=== PATIENT | male | born 1935 | race Caucasian/White ===

== ENCOUNTER 2021-09-10 00:36 | Day surgery (SDC) | payer MEDICARE, SELFPAY ==
--- NOTE | 2021-08-31 14:37 | P.HP_ITS ---
H&P: HPI History of Present Illness Date/Time: 08/31/21 14:37 Patient is a pleasant 86 year with longstanding prostatism and, recently, urinary retention. 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 Also has a moderate size bladder stone. He has failed attempts at managing with tamsulosin and, after careful discussion with the patient and his son, has elected for a TURP with laser lithotripsy and bladder stone extraction. He is aware of the risk including, but not limited to, adverse cardiopulmonary events, persistent urinary retention, hematuria and urinary incontinence. Chief Complaint: Urinary retention Review of Systems Cardiovascular: Cardiovascular: Denies chest pain, Denies lightheadedness, Denies palpitations and Denies dyspnea Respiratory: Respiratory: Denies dyspnea Gastrointestinal: Gastrointestinal: Denies diarrhea, Denies nausea and Denies vomiting Genitourinary: Genitourinary: Denies hematuria and Denies dysuria Endocrine: Endocrine: Denies palpitations Exam Const: General: no acute distress Resp: Effort & Inspection: normal respiratory effort GI: Inspection: non-distended GI Palp: No abdominal tenderness and No Guarding due to palpation present (GI) Auscultation: normal bowel sounds Assessment and Plan Assessment and plan (1) Urinary retention due to benign prostatic hyperplasia: Code(s): N40.1 - Benign prostatic hyperplasia with lower urinary tract symptoms; R33.8 - Other retention of urine Status: Acute (2) Bladder stone: Code(s): N21.0 - Calculus in bladder Status: Acute Assessment and Plan: * Cystoscopy, laser lithotripsy with bladder stone extraction and TURP
[2021-09-07 12:12] VITALS: BMI 23.2
--- NOTE | 2021-09-07 12:21 | PC.NURSE ---
Report to the Outpatient Waiting Room, entrance under the green pavilion located off [facility], at time _0600_ on date _09/10/21_. OR Time: _0730 AM__. - You and your visitor will be asked a series of questions to screen for COVID 19 for your protection. - A mask is required within the hospital. - NO visitors are allowed at this time. Patient visitors will be guided where to wait when not with patient. Preoperative COVID Testing Requirements: No COVID Test needed if: (proof is required; if not received patient will have Rapid Test prior to entry) - Patient has received COVID Vaccine at least 14 days prior to procedure date or - Patient has positive COVID test result within last 90 days of surgery date. COVID Test needed if above criteria is not met If not COVID vaccinated a COVID test must be conducted within 72 hours of surgery and patient is asked to isolate self from time of testing until procedure. You will go to the [facility] for your COVID testing. The [facility] is located at the corner of [address] [facility]. You will only be called if COVID results are positive and your surgeon may reschedule your elective surgery date. Patients may have clear liquids (water, carbonated beverages, clear teas, apple juice) until 3 hours prior to surgery with a maximum of 20 ounces. (0430 AM) - No food from midnight until time of surgery - Infants may have breast milk until 4 hours before surgery, infant formula 6 hours prior to surgery. - Children will be allowed to drink immediately following surgery. If applicable, please bring a bottle or sippy cup to assist with drinking. Juice, water, soda, and popsicles are readily available. For infants on formula, please bring formula the day of surgery. Pacifiers are allowed. Take the following medications with a SIP of water the morning of surgery: _CARBIDOPA-LEVODOPA,LEVOTHYROXINE, METOPROLOL__ Medications to discontinue per physician _SON STATES PT STOPPED WARFARIN 09/02/21_ Please no make-up, nail icelandic, hairspray, perfume, deodorant, or body powder the day of surgery. No jewelry (including any body piercings) or valuables the day of surgery, leave them at home. Please take a shower or bath the night before, or the morning of, surgery with an antibacterial soap. Wear comfortable, loose fitting clothing. Children are encouraged to wear pajamas. - Jewelry must be removed prior to entering the operating room. Rings and piercings that are not removed may be cut off. - The hospital will not accept responsibility for valuables. - Please leave all valuables, including medications, at home the day of surgery. If you are going home after surgery, a licensed drivers license examiner must drive you home. - NO public transportation without another adult. - We recommend that an adult stay with you for 24 hours following discharge. - We also recommend that you do not drive, make important decision, drink alcoholic beverages, or take any drugs that were not prescribed by your health care provider for at least 24 hours after your discharge time. For Pediatric surgeries, we recommend two adults accompany the child home (only one inside the building at this time). Follow any additional instructions given to you from your surgeon. Telephone instructions given to _PT'S SON MUNA__and asked if any additional questions and then verbalized understanding. Patient advised to call surgeon office or pre surgery nurse liaison [phone] if any additional questions.
[2021-09-10] VITALS (19 sets, daily range): BP systolic 89–137; BP diastolic 49–88; PULSE 62–91; RESP 10–18; TEMP 36.4–37.3; O2SAT 96–100; BMI 22.1
--- NOTE | 2021-09-10 06:53 | WPDHPUPDATE1 ---
History and Physical Update Update Date/Time: 09/10/21 06:53 History and Physical has been reviewed, including an updated exam of the patient. There are NO changes in the patient's condition. Risks, benefits, and alternatives have been discussed and questions answered. Patient agrees to proceed with procedure.
--- NOTE | 2021-09-10 06:57 | P.PNAN_ITS ---
Anes - Initial Pre Proc Eval Procedure: Operation Date: 09/10/21 07:30 Proposed Procedures p Trans Urethral Resection Prostate - Pascual Lo MD s Laser Lithotripsy Bladder Stones - Pascual Lo MD Date/Time: 09/10/21 06:57 Surgeon: Pascual Lo MD Pre Op Diagnosis: BPH,Bladder Stones, Calculus of Ureteral Patient Data Age: 86 Gender: M Height: 1.83 m Weight: 74 kg Allergies Allergy/AdvReac Type Severity Reaction Status Date / Time No Known Allergies Allergy Verified 09/10/21 06:40 Home Medications Medication Instructions Recorded Confirmed Type allopurinol 100 mg DAILY 09/07/21 09/10/21 History carbidopa-levodopa 2 tablet QID 09/07/21 09/10/21 History cephalexin 500 mg DAILY 09/07/21 09/07/21 History docusate sodium [Colace] 100 mg PO BID 09/07/21 09/10/21 History finasteride 5 mg DAILY 09/07/21 09/10/21 History hydrochlorothiazide 12.5 mg DAILY 09/07/21 09/10/21 History levothyroxine 100 mcg DAILY 09/07/21 09/10/21 History metoprolol succinate 12.5 mg PO DAILY 09/07/21 09/10/21 History tamsulosin 0.4 mg PO HS 09/07/21 09/10/21 History terazosin 10 mg DAILY 09/07/21 09/10/21 History warfarin 3 mg DAILY 09/07/21 09/10/21 History Laboratory Tests 09/10/21 06:50 PT Pending INR Pending Patient hx anesthesia problems: none Family hx anesthesia problems: none Results Review: All pre-operative results and documents have been reviewed as part of the pre-operative evaluation. [facility] Past Medical History Medical History Afib Hypertension Parkinson disease Social History Social History Smoking status: Former smoker Tobacco type: cigars Second hand tobacco smoke exposure: No Additional smoking assessment comments: SON STATES PT SMOKED OCCASIONAL CIGAR - QUIT OVERY 30-40 YRS AGO Substance use type: does not use Living arrangements: alone Spiritual care concerns: No Anes - Eval Final PreProcedure Day of Procedure 09/10/21 06:57 Patient weight: normal Heart: irregular rhythm Lungs: clear to auscultation Airway: Mallampati scale class II Neurological: other (alert) Last oral intake: >/= 8 hours ASA classification: III Emergent: no Anesthetic plan: proceed Anesthesia type and monitoring: general LMA and standard monitoring Results Review: All pre-operative results and documents have been reviewed as part of the pre-operative evaluation. Informed Consent: The patient's anesthetic plan and its attendant risks and benefits were discussed with the patient/family/POA. Questions were solicited and answers provided to the satisfaction of the patient/family/POA.
[2021-09-10 07:10] LABS: INR 1.2; Prothrombin Time 14.7 Seconds (11.1-14.7)
[2021-09-10] MEDS: LACTATED RINGERS 1,000 ML 30 ML IV CONT (07:12)
[2021-09-10] MEDS: ceFAZolin 2 GM/D5W 50 ML 2 GM/50 ML BAG IVPB (07:26)
--- NOTE | 2021-09-10 09:22 | W.PM.PROC2 ---
Procedure Note - Detailed Date of Procedure 09/10/21 Pre-op Diagnosis BPH,Bladder Stone Post-op Diagnosis same Procedure Performed Cystoscopy, laser lithotripsy with extraction of a large bladder calculus; TURP Surgeon Pascual Lo MD Anesthesia general Description of Procedure patient brought to the operative suite where he has prepped draped in routine sterile fashion while in a dorsal lithotomy position after the uneventful induction of a general anesthetic. Cystoscopy is undertaken the 20 F rigid cystoscope. Has no urethral stricture but trilobar hyperplasia of the prostate. Has a large bladder calculus. Using a 1000 micron holmium laser fiber we fractured that and a tiny pieces which were evacuated using an KeepTrax evacuator. Attention was then turned to the TURP. Resection of the median lobe was undertaken from the bladder neck to the verumontanum. This was carried down to the fibers of the bladder neck were identified. He has a moderate size median lobe. Left lateral lobe was then resected starting at the 12 o'clock position and working to the 6 o'clock position. Right lateral lobe was resected in a similar fashion. Resection was carried out until the capsular fibers of the prostate were identified and resection extended from the bladder neck to the verumontanum. Apical tissue was circumferentially resected. Chips were evacuated from the bladder. Ureteral orifices were inspected and found to be without injury. Hemostasis was obtained with electrocautery using both the loop and rollerball electrode. A 24 F hematuria catheter was placed. Urinary efflux was clear at the termination of the procedure. The patient was taken to the recovery room good condition. Estimated Blood Loss -100.0 Drains Yes Packing No Pathology yes Complications No immediate complications Condition stable Disposition PACU
[2021-09-10] MEDS: DEXTROSE 5%/LACTATED RINGERS 1,000 ML 125 ML IV CONT ×2 (11:20→20:09)
--- NOTE | 2021-09-10 12:10 | PC.NURSE ---
This patient, Caleb Torres, was admitted to [facility] Surgery-3. Patient/family oriented to hospital policies and general routines including ID bracelet, bed and alarms, visiting hours, pain management, procedures, bathroom and other care routines, personal items, smoking policy, room service/diet, and visiting hours. Information on how to activate the Rapid Response Team has been discussed. Patient/Family are encouraged to report perceived risks to care and to ask questions if they do not understand what they are told or what they should do.
[2021-09-10] MEDS: CARBIDOPA/LEVODOPA 25/100 MG TABLET 2 TABLET PO ×3 (12:40→21:54)
[2021-09-10] MEDS: DOCUSATE SODIUM 100 MG CAPSULE PO (18:03)
[2021-09-11 03:45] VITALS: BP 119/68; PULSE 82; RESP 16; TEMP 36.6; O2SAT 100
[2021-09-11 05:49] LABS: Hematocrit 32.6 % (42.0-52.0); Hemoglobin 10.5 g/dL (14.0-18.0)
[2021-09-11 05:58] LABS: Anion Gap 2 mmol/L (8-16); Blood Urea Nitrogen 18 mg/dL (9-20); Calcium 8.6 mg/dL (8.4-10.2); Carbon Dioxide 31 mmol/L (22-30); Chloride 101 mmol/L (98-107); Estimated CRCL calculation 62 ml/min; Estimated Glomerular Filt Rate > 60; Glucose 144 mg/dL (65-110); Potassium 4.1 mmol/L (3.4-5.0); Sodium 134 mmol/L (137-145)
--- NOTE | 2021-09-11 07:05 | WPDUROPN2 ---
Progress Note: A&P Assessment and Plan (1) Bladder stone: Code(s): N21.0 - Calculus in bladder Status: Acute (2) Urinary retention due to benign prostatic hyperplasia: Code(s): N40.1 - Benign prostatic hyperplasia with lower urinary tract symptoms; R33.8 - Other retention of urine Status: Acute Assessment and Plan: Doing well POD #1 TURP - urine clear and comfortable. Stop CBI early this morning. Anticipate voiding trial and discharge midday. Subjective Subjective Date/Time Seen: 09/11/21 07:05 Comfortable, urine clear - doing well POD #1 TURP Review of Systems Cardiovascular: Cardiovascular: Denies chest pain, Denies lightheadedness, Denies palpitations and Denies dyspnea Respiratory: Respiratory: Denies dyspnea Gastrointestinal: Gastrointestinal: Denies diarrhea, Denies nausea and Denies vomiting Genitourinary: Genitourinary: Denies hematuria and Denies dysuria Endocrine: Endocrine: Denies palpitations Exam Const: General: no acute distress Resp: Effort & Inspection: normal respiratory effort GI: Inspection: non-distended GI Palp: No abdominal tenderness and No Guarding due to palpation present (GI) Auscultation: normal bowel sounds Objective Data Vital Signs Vital Signs: Vital Signs - 24 hr 09/10/21 07:14 09/10/21 09:06 09/10/21 09:20 Temperature 97.9 F 97.5 F L Pulse Rate 84 71 71 Respiratory Rate 16 10 L 16 Blood Pressure 137/85 117/71 119/81 Pulse Oximetry 100 100 100 09/10/21 09:35 09/10/21 09:50 09/10/21 10:05 Temperature Pulse Rate 67 70 75 Respiratory Rate 16 12 12 Blood Pressure 119/72 122/81 117/88 Pulse Oximetry 100 98 97 09/10/21 10:20 09/10/21 10:35 09/10/21 10:50 Temperature 97.6 F Pulse Rate 70 75 76 Respiratory Rate 12 12 12 Blood Pressure 125/79 124/64 122/70 Pulse Oximetry 98 97 97 09/10/21 11:05 09/10/21 11:15 09/10/21 11:23 Temperature 97.6 F Pulse Rate 72 77 62 Respiratory Rate 12 12 16 Blood Pressure 116/84 127/86 123/71 Pulse Oximetry 96 97 99 09/10/21 11:35 09/10/21 12:05 09/10/21 12:50 Temperature 97.8 F Pulse Rate 73 70 Respiratory Rate 14 16 Blood Pressure 114/69 114/72 Pulse Oximetry 98 99 99 09/10/21 13:05 09/10/21 17:00 09/10/21 21:00 Temperature 98.5 F 98.4 F Pulse Rate 73 91 86 Respiratory Rate 12 18 16 Blood Pressure 115/63 89/49 L 111/59 L Pulse Oximetry 99 97 99 09/10/21 23:15 09/11/21 03:45 Temperature 99.2 F 98 F Pulse Rate 75 82 Respiratory Rate 16 16 Blood Pressure 110/58 L 119/68 Pulse Oximetry 100 100 Intake/Output Intake/Output: Intake & Output 09/08/21 09/09/21 09/10/21 09/11/21 23:59 23:59 23:59 23:59 Intake Total 47924 65684 Output Total 89936 41628 Balance -910 -500 Meds/Results Medications: Active Medications Generic Name Dose Route Start Last Admin Trade Name Freq PRN Reason Stop Dose Admin Hydrocodone Bitart/Acetaminophen 1 tab 09/10/21 11:15 Hydrocodone/Acetaminophen (*Crx) 5-325 Mg Tablet PO Q4H PRN Pain Rated 1-6 Allopurinol 100 mg 09/11/21 09:00 Allopurinol 100 Mg Tablet PO DAILY LESLIE Carbidopa/Levodopa 2 tablet 09/10/21 13:00 09/10/21 21:54 Carbidopa/Levodopa 25/100 Mg Tablet PO 2 tablet QID LESLIE Administration Cephalexin HCl 500 mg 09/11/21 09:00 Cephalexin 500 Mg Capsule PO QID LESLIE Docusate Sodium 100 mg 09/10/21 17:00 09/10/21 18:03 Docusate Sodium 100 Mg Capsule PO 100 mg BID LESLIE Administration Hydrochlorothiazide 12.5 mg 09/10/21 09:00 09/10/21 12:39 Hydrochlorothiazide 12.5 Mg Capsule PO Not Given DAILY LESLIE Hyoscyamine 0.125 mg 09/10/21 11:15 Hyoscyamine Sulfate 0.125 Mg Tablet SUBLINGUAL Q6H PRN Bladder Spasm Dextrose/Lactated Ringer's 1,000 mls @ 125 mls/hr 09/10/21 11:15 09/11/21 04:35 Dextrose 5%/Lactated Ringers IV CONT Not Given .Q8H LESLIE Levothyroxine Sodium 100 mcg 09/11/21 06:30 Levothyroxine S
[2021-09-11] MEDS: LEVOTHYROXINE SODIUM 100 MCG TABLET PO (07:13)
[2021-09-11 08:00] VITALS: PULSE 95; RESP 16; O2SAT 98
[2021-09-11 08:50] VITALS: PULSE 95
[2021-09-11] MEDS: DOCUSATE SODIUM 100 MG CAPSULE PO (08:50)
[2021-09-11] MEDS: allopurinoL 100 MG TABLET PO (08:50)
[2021-09-11] MEDS: CEPHALEXIN 500 MG CAPSULE PO (08:50)
[2021-09-11] MEDS: METOPROLOL SUCCINATE EXT REL 12.5 MG TABCR PO (08:50)
[2021-09-11] MEDS: hydroCHLOROthiazide 12.5 MG CAPSULE PO (08:50)
[2021-09-11] MEDS: CARBIDOPA/LEVODOPA 25/100 MG TABLET 2 TABLET PO (08:50)
[2021-09-11 09:00] VITALS: BP 123/68; PULSE 95; RESP 16; TEMP 37.1; O2SAT 98
--- NOTE | 2021-09-11 09:54 | WPDANESPN ---
Anes - Prog Note Post-Op Date/Time: 09/11/21 09:54 Cardiovascular status: normal Respiratory status: normal Airway patency: baseline Mental status: baseline Post-Op hydration status: normal Vital Signs: Last Vital Signs Temp 36.6 C 09/11/21 03:45 Pulse 95 09/11/21 08:50 Resp 16 09/11/21 08:00 BP 119/68 09/11/21 03:45 Pulse Ox 98 09/11/21 08:00 Pain Score (VAS): 3 I/O: Intake & Output 09/10/21 09/11/21 09/11/21 23:59 07:59 15:59 Intake Total 97579 27546 Output Total 46221 79259 Balance 1940 -500 Laboratory Tests 09/11/21 05:15 09/11/21 05:15 09/11/21 09/11/21 05:15 05:15 Hgb 10.5 L Hct 32.6 L Sodium 134 L Potassium 4.1 Chloride 101 Carbon Dioxide 31 H Anion Gap 2 L BUN 18 Creatinine 0.80 Estim Creat Clear Calc 62 Estimated GFR > 60 Glucose 144 H Calcium 8.6 Post-procedural complaints: none Patient Feedback: Patient satisfied with anesthetic care.
--- NOTE | 2021-09-11 09:55 | PC.NURSE ---
CATHETER PULLED AT 0930. VOIDING TRIAL BEGAN AT THIS TIME, PER DR PLUNKETT.
--- NOTE | 2021-09-11 14:00 | PM.DS ---
DS: Admitting Diagnosis Discharge Date 09/11/2021 @1400 Admitting Diagnosis BPH DS: Discharge Diagnosis Discharge Diagnosis (1) Urinary retention due to benign prostatic hyperplasia: Code(s): N40.1 - Benign prostatic hyperplasia with lower urinary tract symptoms; R33.8 - Other retention of urine Status: Acute (2) Bladder stone: Code(s): N21.0 - Calculus in bladder Status: Acute DS: Summary Hospital Course Hospital Course: This patient with longstanding prostatism refractory for medical management was admitted on the morning of his planned TURP. The procedure was undertaken on that same day in an uneventful fashion. His post-operative course was, likewise, uneventful. On the evening of the procedure he was tolerating a diet. On POD#1 his urine was clear on CBI. The urine remained clear and, therefore, the catheter was removed late morning. The patient was observed for several hours, until he demonstrated he could void effectively without significant hematuria. He was discharged with careful instruction on limiting physical activity x2 weeks and plans to f/ in 2-3 weeks. At discharge he was comfortable and tolerating a diet. Time Spent with Patient Time attestation: Total time spent providing and/or coordinating discharge services:15 min. Exam Const: General: no acute distress Resp: Effort & Inspection: normal respiratory effort GI: Inspection: non-distended GI Palp: No abdominal tenderness and No Guarding due to palpation present (GI) Auscultation: normal bowel sounds DS: Data Data Completed and Pending Pending studies at discharge: Pending at discharge 09/10/21 07:56 Surgical [PTH] Routine Surgical [PTH] Routine Labs on day of discharge: Labs from last 24 hours 09/11/21 09/11/21 05:15 05:15 Hgb 10.5 L Hct 32.6 L Sodium 134 L Potassium 4.1 Chloride 101 Carbon Dioxide 31 H Anion Gap 2 L BUN 18 Creatinine 0.80 Estim Creat Clear Calc 62 Estimated GFR > 60 Glucose 144 H Calcium 8.6 Discharge Plan Discharge Patient Disposition: Home, Self-Care Discharge Instructions: 1) Activity: No lifting/straining >15lbs. x2 weeks. 2) Diet: Resume normal pre-admission diet. 3) Follow-up: 2-3 weeks / call office for appointment ([phone]). Stand Alone Forms: General Discharge Instructions Discharge Orders: Discharge Order (Routine); Ordered 09/11/21 Ordered By: Pascual Lo Discharge Medications: New hydrocodone-acetaminophen 5-325 mg tablet 1 - 2 tablet PO Q6H PRN (Reason: pain) Qty: 20 RF: 0 cephalexin 500 mg capsule 500 mg PO Q8H Qty: 9 RF: 0 Continued allopurinol 100 mg tablet 100 mg DAILY RF: 0 levothyroxine 100 mcg tablet 100 mcg DAILY RF: 0 docusate sodium [Colace] 100 mg Capsule 100 mg PO BID RF: 0 metoprolol succinate 25 mg tablet extended release 24 hr 12.5 mg PO DAILY RF: 0 carbidopa-levodopa 25-100 mg tablet 2 tablet QID RF: 0 terazosin 10 mg capsule 10 mg DAILY RF: 0 hydrochlorothiazide 12.5 mg tablet 12.5 mg DAILY RF: 0 Held warfarin 3 mg tablet 3 mg DAILY RF: 0 Hold Instructions: Resume on 09/14/21. Discontinued cephalexin 500 mg capsule 500 mg DAILY RF: 0 tamsulosin 0.4 mg capsule 0.4 mg PO HS RF: 0 finasteride 5 mg tablet 5 mg DAILY RF: 0
--- NOTE | 2021-09-11 14:58 | PC.NURSE ---
PT DISCHARGED HOME WITH SHEELA QUINN
== END 2021-09-11 14:20 | disposition home or self-care (01) ==
LOC: ANHSURGERY 06:17 → ANHSUROVER 09-11 11:36
PROVIDERS: Anesthesiology; PCP Family Medicine; Visit Provider Urology
PROC: 0VT08ZZ Resection of Prostate, Via Natural or Artificial Opening Endoscopic (ICD-10-PCS; CPT 52601; principal; 2021-09-10 07:30)
PROC: (CPT 52601; 2021-09-10 07:30)
DX: N40.1 Benign prostatic hyperplasia with lower urinary tract symptoms (principal); R33.8 Other retention of urine; N21.0 Calculus in bladder; I48.91 Unspecified atrial fibrillation; I10 Essential (primary) hypertension; G20 Parkinson's disease; Z79.01 Long term (current) use of anticoagulants; Z87.891 Personal history of nicotine dependence
CPT/HCPCS: 52601; 52318; 36415; 80048; 82365; 85014; 85018; 85610; 88300; 88305; A9270; C1758; J0131; J0690; J2405; J2704; J3010; J7120; J7121